=== PATIENT | female | born 1955 | race Caucasian/White ===

== ENCOUNTER 2017-08-22 10:44 | Emergency (ER) | payer OTHER ==
[2017-08-22 12:37] VITALS: BP 141/91
--- NOTE | 2017-08-22 13:16 | UC ---
Respiratory Complaint HPI - HPI Summary HPI Summary: Patient to urgent care today with chief complaint of sinus congestion sore throat and laryngitis . She began Flonase nasal spray and Claritin and hasn't gotten much relief - History of Current Complaint Chief Complaint: UCGeneralIllness Stated Complaint: COUGH, LOSS OF VOICE, BILAT EAR ACHES Time Seen by Provider: 08/22/17 13:08 Hx Obtained From: Patient ?: No Onset/Duration: Gradual Onset, Lasting Days - 5, Still Present Timing: Constant Severity Initially: Mild Severity Currently: Mild Character: Cough: Productive Aggravating Factors: Nothing Alleviating Factors: Nothing Associated Signs And Symptoms: Positive: URI, Nasal Congestion - Allergies/Home Medications Allergies/Adverse Reactions: Allergies Allergy/AdvReac Type Severity Reaction Status Date / Time Iodinated Contrast- Oral and Allergy Numbness Verified 08/22/17 12:37 IV Dye Penicillins Allergy Swelling Verified 08/22/17 12:37 Of Face,Lips,& Throat prochlorperazine Allergy Swelling Verified 08/22/17 12:37 [From Compazine] Of Face,Lips,& Throat Sulfa (Sulfonamide Allergy See Comment Verified 08/22/17 12:37 Antibiotics) peaches Allergy Intermediate rash/hives Uncoded 08/22/17 12:37 strawberries Allergy Intermediate rash/hives Uncoded 08/22/17 12:37 bee stings Allergy Swelling Uncoded 08/22/17 12:37 Home Medications: Home Medications Fluticasone NASAL SPRAY 50MCG* [Flonase NASAL SPRAY 50MCG*] 2 spray BOTH NARES DAILY 08/22/17 [History Confirmed 08/22/17] Loratadine 10 mg PO DAILY 08/22/17 [History Confirmed 08/22/17] PMH/Surg Hx/FS Hx/Imm Hx Previously Healthy: Yes - Surgical History Surgical History: Yes Surgery Procedure, Year, and Place: T&A at 7 yr old. LUMPECTOMY FOR LOWER LIP, BEHIND EAR AND BEHIND THIGH - Family History Known Family History: Positive: None - Social History Occupation: Employed Full-time Lives: With Family Alcohol Use: Rare Substance Use Type: None Smoking Status (MU): Never Smoked Tobacco - Immunization History Most Recent Influenza Vaccination: has not had Review of Systems Constitutional: Negative Skin: Negative Eyes: Negative ENT: Sore Throat, Ear Ache, Nasal Discharge, Sinus Congestion Respiratory: Negative Cardiovascular: Negative Gastrointestinal: Negative Genitourinary: Negative Motor: Negative Neurovascular: Negative Musculoskeletal: Negative Neurological: Negative Psychological: Negative Is Patient Immunocompromised?: No All Other Systems Reviewed And Are Negative: Yes Physical Exam Triage Information Reviewed: Yes Appearance: Well-Appearing, No Pain Distress, Well-Nourished Vital Signs: Initial Vital Signs Temp 98.6 F 08/22/17 12:30 Pulse 79 08/22/17 12:30 Resp 14 08/22/17 12:30 BP 141/91 08/22/17 12:30 Pulse Ox 97 08/22/17 12:30 Vital Signs Reviewed: Yes Eye Exam: Normal Eyes: Positive: Conjunctiva Clear ENT Exam: Normal ENT: Positive: Normal ENT inspection, Hearing grossly normal, Pharynx normal, Nasal congestion, Nasal drainage, TMs normal, Hoarse voice, Uvula midline. Negative: Tonsillar swelling, Tonsillar exudate, Trismus, Muffled voice, Dental tenderness, Sinus tenderness Dental Exam: Normal Neck exam: Normal Neck: Positive: Supple, Nontender Respiratory Exam: Normal Respiratory: Positive: Chest non-tender, Lungs clear, Normal breath sounds, No respiratory distress, No accessory muscle use Cardiovascular Exam: Normal Cardiovascular: Positive: RRR, No Murmur, Pulses Normal, Brisk Capillary Refill Musculoskeletal Exam: Normal Musculoskeletal: Positive: Strength Intact, ROM Intact, No Edema Neurological Exam: Normal Neurological: Positive: Alert, Muscle Tone Normal Psychological Exam: Normal Skin Exam: Normal UC Diagnostic Evaluation - Laboratory O2 Sat by Pulse Oximetry: 97 Respiratory Course/Dx - Course Course Of Treatment: Add Mucinex, albuterol inhaler increase fluids. There is no evidence of this being an infectious issue it appears all to be related to your environmental exposure a few days ago - Differential Dx/Diagnosis Provider Diagnoses: Allergic rhinosinusitis Discharge - Sign-Out/Discharge Documenting (check all that apply): Discharge/Admit/Transfer - Discharge Plan Condition: Stable Disposition: HOME Prescriptions: Albuterol HFA INHALER* [Ventolin HFA Inhaler*] 2 puff INH Q4H PRN #1 mdi PRN Reason: cough chest congestion Patient Education Materials: Decongestant/Expectorant (By mouth), How to Use a Metered-Dose Inhaler (ED), Allergic Rhinitis (DC), Hypertension (ED) Referrals: Makenzie Hall PA [Primary Care Provider] - 3 Days Additional Instructions: Ok to continue loratidine and nasal spray - Billing Disposition and Condition Condition: STABLE Disposition: HOME
== END 2017-08-22 13:32 | disposition home or self-care (01) ==
LOC: UCCORT 10:45
DX: Z88.2 Allergy status to sulfonamides (principal); Z88.8 Allergy status to other drugs, medicaments and biological substances; Z91.041 Radiographic dye allergy status; Z88.0 Allergy status to penicillin
CPT/HCPCS: 99202; G0463

== ENCOUNTER 2018-10-16 14:39 | Emergency (ER) | payer OTHER ==
[2018-10-16 14:58] VITALS: BP 128/69
--- NOTE | 2018-10-16 15:08 | UC ---
Throat Pain/Nasal Misael HPI - HPI Summary HPI Summary: C/O sore throat x 6 days with hoarse voice x 3 days. Also itchy ears. Has allergies, using claritin and flonase. - History of Current Complaint Chief Complaint: UCGeneralIllness Stated Complaint: SORE THROAT Hx Obtained From: Patient Onset/Duration: Gradual Onset, Lasting Days - 6, Still Present, Worse Since - 3 days Severity: Moderate Pain Intensity: 0 Cough: Productive Associated Signs & Symptoms: Positive: Hoarseness, Nasal Discharge Related History: Seasonal Allergies, T & A - Allergies/Home Medications Allergies/Adverse Reactions: Allergies Allergy/AdvReac Type Severity Reaction Status Date / Time Iodinated Contrast- Oral and Allergy Numbness Verified 10/16/18 14:49 IV Dye Penicillins Allergy Swelling Verified 10/16/18 14:49 Of Face,Lips,& Throat prochlorperazine Allergy Swelling Verified 10/16/18 14:49 [From Compazine] Of Face,Lips,& Throat Sulfa (Sulfonamide Allergy See Comment Verified 10/16/18 14:49 Antibiotics) peaches Allergy Intermediate rash/hives Uncoded 10/16/18 14:49 strawberries Allergy Intermediate rash/hives Uncoded 10/16/18 14:49 bee stings Allergy Swelling Uncoded 10/16/18 14:49 PMH/Surg Hx/FS Hx/Imm Hx Previously Healthy: Yes - Surgical History Surgical History: Yes Surgery Procedure, Year, and Place: T&A at 7 yr old. LUMPECTOMY FOR LOWER LIP, BEHIND EAR AND BEHIND THIGH. LIPOMA REMOVED FROM UPPER RIGHT THIGH-09/12 - Family History Known Family History: Positive: Diabetes - Social History Occupation: Employed Full-time Lives: Alone Alcohol Use: Rare Substance Use Type: None Smoking Status (MU): Never Smoked Tobacco - Immunization History Most Recent Influenza Vaccination: has not had Review of Systems All Other Systems Reviewed And Are Negative: Yes ENT: Positive: Sore Throat, Nasal Discharge Respiratory: Positive: Cough Musculoskeletal: Positive: Other: - dorsal lump right thumb IP joint Is Patient Immunocompromised?: No Physical Exam Triage Information Reviewed: Yes Appearance: Well-Appearing, No Pain Distress, Well-Nourished Vital Signs: Initial Vital Signs Temp 98.2 F 10/16/18 14:52 Pulse 77 10/16/18 14:52 Resp 14 10/16/18 14:52 BP 128/69 10/16/18 14:52 Pulse Ox 99 10/16/18 14:52 Vital Signs Reviewed: Yes Eyes: Positive: Conjunctiva Clear - OD, Conjunctiva Inflamed - OS ENT: Positive: Pharynx normal, Nasal congestion - with allergic changes, TMs normal Neck exam: Normal Respiratory: Positive: Lungs clear, Wheezing - expiratory wheeze with coughing Cardiovascular Exam: Normal Musculoskeletal Exam: Normal Musculoskeletal: Positive: Other: - small ganglion right IP joint dorsal. Neurological Exam: Normal Psychological Exam: Normal Skin Exam: Normal Throat Pain/Nasal Course/Dx - Differential Dx/Diagnosis Differential Diagnosis/HQI/PQRI: Pharyngitis, Tonsillitis, URI Provider Diagnosis: Pharyngitis, Allergic rhinitis, Ganglion, finger joint of right hand Discharge - Sign-Out/Discharge Documenting (check all that apply): Patient Departure All imaging exams completed and their final reports reviewed: No Studies - Discharge Plan Condition: Stable Disposition: HOME Prescriptions: Montelukast Sodium TAB* [Singulair 10 MG TAB*] 10 mg PO BEDTIME #30 tab predniSONE TAB* [Deltasone 20 MG TAB*] 60 mg PO DAILY #18 tab Patient Education Materials: Laryngitis (ED), Prednisone (By mouth), Allergic Rhinitis (ED), Montelukast (By mouth) Referrals: Makenzie Hall PA [Primary Care Provider] - Additional Instructions: NEILMED SINUS RINSE: CHECK OUT AT [facility] Saline nasal wash helps with mucous, allergies and congestion. It can be used up to twice a day or only as needed. Use lukewarm tap water. It does not have to be sterilized or distilled water. Do 1/3 on each side and snort out of both nostrils. Repeat the process with 1/6 of the bottle on each side with snorting in between to finish the solution in the bottle - Billing Disposition and Condition Condition: STABLE Disposition: Home
== END 2018-10-16 15:38 | disposition home or self-care (01) ==
LOC: UCCORT 14:39
DX: J02.9 Acute pharyngitis, unspecified (principal); J30.9 Allergic rhinitis, unspecified; M67.441 Ganglion, right hand; Z88.0 Allergy status to penicillin; Z88.2 Allergy status to sulfonamides
CPT/HCPCS: 87651; 99212; G0463